=== PATIENT | male | born 1960 | race Two or more races ===

== ENCOUNTER 2023-05-13 15:32 | Inpatient (IN) | payer MEDICAID, OTHER ==
[~2023-05-13] VITALS: Ht 170.2 cm; Wt 99.0 kg
[2023-05-13 16:38] LABS: Basophils # (auto) 0 10 ^3/uL (0-0.2); Basophils % (auto) 0.4 % (0.0-2.0); Eosinophils # (auto) 0 10 ^3/uL (0-0.8); Eosinophils % (auto) 0.8 % (0.0-7.0); Hematocrit 28.9 % (41.0-53.0); Hemoglobin 8.9 g/dL (13.5-17.5); Lymphocytes # (auto) 0.9 10 ^3/uL (0.4-5.4); Lymphocytes % (auto) 15.7 % (10.0-50.0); Mean Corpuscular Hemoglobin 24.7 pg (28.0-32.0); Mean Corpuscular Hgb Conc. 30.9 g/dL (32.0-36.0); Monocytes # (auto) 0.6 10 ^3/uL (0-1.3); Monocytes % (auto) 10.6 % (0.0-12.0); Neutrophils # (auto) 4.1 10 ^3/uL (1.6-8.6); Neutrophils % (auto) 72.5 % (37.0-80.0); Nucleated Red Blood Cells % 0.1 %; Red Blood Cells 3.61 10^6/uL (4.5-5.90); Red Cell Distribution Width 19.7 % (11.8-14.3); White Blood Cell 5.6 10^3/uL (4.4-10.8)
[2023-05-13 16:52] LABS: Alanine Aminotransferase 56 U/L (7-40); Albumin 3.2 g/dL (3.2-4.8); Alkaline Phosphatase 100 U/L (46-116); Anion Gap 7 (5-15); Aspartate Aminotransferase 68 U/L (13-40); BUN/Creatinine Ratio 14.4 (10.0-20.0); Blood Urea Nitrogen 15 mg/dL (9-23); Calcium 8.5 mg/dL (8.7-10.4); Carbon Dioxide 22 mmol/L (20-30); Chloride 108 mmol/L (98-107); Glucose 105 mg/dL (74-106); Potassium 3.9 mmol/L (3.5-5.1); Sodium 137 mmol/L (136-145)
[2023-05-13 16:53] LABS: Bilirubin, Total 0.7 mg/dL (0.2-1.0); INR 1.11 (0.9-1.15); Partial Thromboplastin Time 29.9 SEC (24.5-34.5); Prothrombin Time 11.6 sec (9.3-11.8); Total Protein 7.5 g/dL (5.7-8.2)
[2023-05-13] MEDS ORDERED: ACETAMINOPHEN 325 MG TAB PO PRN (19:15)
[2023-05-13] MEDS ORDERED: CLINDAMYCIN 600MG IV 50 ML IV ONE (19:15)
[2023-05-13] MEDS ORDERED: VANCOMYCIN PER PHARMACY 0 MG IV SCH (19:15)
[2023-05-13 19:53] LABS: Triglycerides 98 mg/dL (< 150)
[2023-05-13 19:54] LABS: LDL Cholesterol 42 mg/dL (< 100)
[2023-05-13 19:55] LABS: Cholesterol 95 mg/dL (< 200); HDL Cholesterol 34 mg/dL (40-59)
[2023-05-13 20:00] VITALS: RESP 20; O2SAT 98
[2023-05-13] MEDS ORDERED: VANCOMYCIN 1GM/200ML 200 ML IV NR (20:00)
[2023-05-13] MEDS: KETOROLAC TROMETH 30 MG/ML 1ML VIAL IV ONE (20:27)
[2023-05-13] MEDS: CLINDAMYCIN 600MG IV 50 ML IV SCH (20:29)
[2023-05-13] MEDS: SODIUM CHLORIDE 0.9% 1,000 ML IV SCH (21:53)
[2023-05-13] MEDS: ASCORBIC ACID 500 MG TAB PO SCH (22:01)
[2023-05-13] MEDS: PIPERACILLIN-TAZOB 3.375GM 100 ML IV ONE (22:20)
[2023-05-14] MEDS: HYDROcodone-ACET 5/325MG TAB PO PRN (05:22)
[2023-05-14 06:34] LABS: Basophils # (auto) 0 10 ^3/uL (0-0.2); Basophils % (auto) 0.5 % (0.0-2.0); Eosinophils # (auto) 0.1 10 ^3/uL (0-0.8); Eosinophils % (auto) 2.4 % (0.0-7.0); Hematocrit 28.5 % (41.0-53.0); Hemoglobin 8.9 g/dL (13.5-17.5); Lymphocytes # (auto) 1.2 10 ^3/uL (0.4-5.4); Lymphocytes % (auto) 20.7 % (10.0-50.0); Mean Corpuscular Hemoglobin 24.7 pg (28.0-32.0); Mean Corpuscular Hgb Conc. 31.1 g/dL (32.0-36.0); Mean Corpuscular Volume 79.5 fL (80.0-100.0); Monocytes # (auto) 0.9 10 ^3/uL (0-1.3); Monocytes % (auto) 15.1 % (0.0-12.0); Neutrophils # (auto) 3.5 10 ^3/uL (1.6-8.6); Neutrophils % (auto) 61.3 % (37.0-80.0); Nucleated Red Blood Cells % 0.1 %; Red Blood Cells 3.58 10^6/uL (4.5-5.90); Red Cell Distribution Width 19.7 % (11.8-14.3); White Blood Cell 5.7 10^3/uL (4.4-10.8)
[2023-05-14 06:50] LABS: Alanine Aminotransferase 50 U/L (7-40); Albumin 3.1 g/dL (3.2-4.8); Alkaline Phosphatase 104 U/L (46-116); Anion Gap 4 (5-15); Aspartate Aminotransferase 64 U/L (13-40); BUN/Creatinine Ratio 15.2 (10.0-20.0); Bilirubin, Total 0.6 mg/dL (0.2-1.0); Blood Urea Nitrogen 16 mg/dL (9-23); Calcium 8.3 mg/dL (8.5-10.1); Carbon Dioxide 23 mmol/L (20-30); Chloride 110 mmol/L (98-107); Glucose 125 mg/dL (74-106); Potassium 3.9 mmol/L (3.5-5.1); Sodium 137 mmol/L (136-145)
[2023-05-14 08:48] VITALS: PULSE 74; RESP 17; O2SAT 96
[2023-05-14] MEDS: MULTIPLE VITAMIN TAB PO SCH (10:15)
[2023-05-14] MEDS: ZINC SULFATE 220mg CAP or TAB PO SCH (10:15)
[2023-05-14] MEDS: VANCOMYCIN 1GM/200ML 200 ML IV ONE (10:16)
[2023-05-14 20:00] VITALS: BP 130/94; PULSE 64; PULSE 74; RESP 16; TEMP 97.6; O2SAT 96
[2023-05-14] MEDS ORDERED: VANCOMYCIN 1GM/200ML 200 ML IV SCH (20:00)
[2023-05-14] MEDS ORDERED: VANCOMYCIN 1GM/200ML 200 ML IV ONE (21:15)
[2023-05-14] MEDS: VANCOMYCIN 1GM/200ML 200 ML IV SCH (21:18)
[2023-05-14 22:00] VITALS: BP 106/65; PULSE 60; RESP 16; TEMP 97.9; O2SAT 94
[2023-05-15] VITALS (7 sets, daily range): BP systolic 107–133; BP diastolic 57–75; PULSE 59–72; RESP 14–19; TEMP 97.1–99; O2SAT 93–99
[2023-05-15] MEDS: cefTRIAXone 1GM/50ML D5W 50 ML IV ONE (15:01)
[2023-05-15 16:08] LABS: Erythrocyte Sedimentation Rate 60 mm/hr (0-20)
[2023-05-16 05:09] VITALS: BP 122/64; PULSE 72; RESP 18; TEMP 97.9; O2SAT 95
[2023-05-16 08:00] VITALS: PULSE 63; RESP 17; RESP 18; O2SAT 97
[2023-05-16 08:09] LABS: Basophils # (auto) 0.1 10 ^3/uL (0-0.2); Basophils % (auto) 1.3 % (0.0-2.0); Eosinophils # (auto) 0.1 10 ^3/uL (0-0.8); Eosinophils % (auto) 3.4 % (0.0-7.0); Hematocrit 30.4 % (41.0-53.0); Hemoglobin 9.2 g/dL (13.5-17.5); Lymphocytes % (auto) 25.5 % (10.0-50.0); Mean Corpuscular Hemoglobin 24.4 pg (28.0-32.0); Mean Corpuscular Hgb Conc. 30.3 g/dL (32.0-36.0); Mean Corpuscular Volume 80.4 fL (80.0-100.0); Monocytes # (auto) 0.4 10 ^3/uL (0-1.3); Neutrophils # (auto) 2.4 10 ^3/uL (1.6-8.6); Neutrophils % (auto) 60.8 % (37.0-80.0); Nucleated Red Blood Cells % 0.2 %; Red Blood Cells 3.78 10^6/uL (4.5-5.90); Red Cell Distribution Width 19.6 % (11.8-14.3)
[2023-05-16 08:10] VITALS: BP 115/67; PULSE 63; RESP 18; TEMP 98; O2SAT 97
[2023-05-16] MEDS: cefTRIAXone 1GM/50ML D5W 50 ML IV SCH (09:21)
[2023-05-16 10:55] LABS: Chloride 106 mmol/L (98-107); Sodium 134 mmol/L (136-145)
[2023-05-16 10:59] LABS: Anion Gap 6 (5-15); Carbon Dioxide 22 mmol/L (20-30)
[2023-05-16 11:00] LABS: Calcium 8.2 mg/dL (8.5-10.1)
[2023-05-16 11:05] LABS: Glucose 130 mg/dL (74-106)
[2023-05-16 11:11] LABS: Blood Urea Nitrogen 11 mg/dL (9-23)
[2023-05-16 11:16] LABS: Potassium 4.1 mmol/L (3.5-5.1)
[2023-05-16 11:17] LABS: BUN/Creatinine Ratio 11.6 (10.0-20.0)
[2023-05-16 12:10] VITALS: BP 114/65; PULSE 63; RESP 18; TEMP 98.2; O2SAT 97
[2023-05-16 16:05] VITALS: BP 108/62; PULSE 56; RESP 20; TEMP 98; O2SAT 96
[2023-05-16] MEDS: ceFAZolin 2 GM/D5W50ml 50 ML IV ONE (16:30)
[2023-05-16 20:00] VITALS: BP 123/71; PULSE 72; PULSE 79; RESP 16; RESP 17; TEMP 97.8; O2SAT 97
[2023-05-16] MEDS: ceFAZolin 2 GM/D5W50ml 50 ML IV SCH (21:00)
[2023-05-17] VITALS (7 sets, daily range): BP systolic 107–126; BP diastolic 45–71; PULSE 56–68; RESP 17–20; TEMP 97.9–98.7; O2SAT 95–100
[2023-05-17 06:17] LABS: Basophils # (auto) 0 10 ^3/uL (0-0.2); Basophils % (auto) 1.1 % (0.0-2.0); Eosinophils # (auto) 0.2 10 ^3/uL (0-0.8); Hemoglobin 9.1 g/dL (13.5-17.5); Lymphocytes # (auto) 1.2 10 ^3/uL (0.4-5.4); Monocytes # (auto) 0.4 10 ^3/uL (0-1.3); Neutrophils # (auto) 2.7 10 ^3/uL (1.6-8.6); White Blood Cell 4.5 10^3/uL (4.4-10.8)
[2023-05-17 06:21] LABS: Eosinophils % (auto) 3.5 % (0.0-7.0); Hematocrit 28.4 % (41.0-53.0); Lymphocytes % (auto) 26.2 % (10.0-50.0); Mean Corpuscular Hemoglobin 25.1 pg (28.0-32.0); Mean Corpuscular Volume 78.3 fL (80.0-100.0); Monocytes % (auto) 8.7 % (0.0-12.0); Neutrophils % (auto) 60.5 % (37.0-80.0); Nucleated Red Blood Cells % 0.1 %; Red Blood Cells 3.63 10^6/uL (4.5-5.90); Red Cell Distribution Width 19.1 % (11.8-14.3)
[2023-05-17 06:35] LABS: INR 1.11 (0.9-1.15); Partial Thromboplastin Time 25.6 SEC (24.5-34.5); Prothrombin Time 11.6 sec (9.3-11.8)
[2023-05-17 06:48] LABS: Alanine Aminotransferase 77 U/L (7-40); Albumin 3.1 g/dL (3.2-4.8); Alkaline Phosphatase 114 U/L (46-116); Anion Gap 7 (5-15); Aspartate Aminotransferase 118 U/L (13-40); Bilirubin, Total 0.4 mg/dL (0.2-1.0); Blood Urea Nitrogen 15 mg/dL (9-23); Calcium 8.3 mg/dL (8.5-10.1); Carbon Dioxide 23 mmol/L (20-30); Chloride 105 mmol/L (98-107); Glucose 97 mg/dL (74-106); Potassium 4.4 mmol/L (3.5-5.1); Sodium 135 mmol/L (136-145)
[2023-05-18] VITALS (8 sets, daily range): BP systolic 101–133; BP diastolic 46–68; PULSE 57–90; RESP 16–18; TEMP 97.2–98.2; O2SAT 96–99
[2023-05-18] MEDS: DAKINS QUARTER STR 0.125% (NaHypochlorite) 473 ML TOPICAL SOL TOP SCH (18:46)
[2023-05-18 23:41] LABS: Urine Bacteria FEW /hpf (None Seen); Urine Blood Negative /uL (Negative); Urine Clarity Clear (Clear); Urine Color Colorless (Yellow); Urine Protein, UAD Negative (Negative); Urine Specific Gravity 1.008 (1.001-1.035); Urine Urobilinogen Normal (Negative); Urine WBC <1 /hpf (0 - 3)
[2023-05-19] VITALS (7 sets, daily range): BP systolic 105–127; BP diastolic 46–61; PULSE 61–70; RESP 12–18; TEMP 97.9–99.3; O2SAT 96–99
[2023-05-19] MEDS ORDERED: MEPERIDINE HCL (25 MG/ML) 1ML VIAL ONE ×2 (07:22→07:58)
[2023-05-19] MEDS ORDERED: fentaNYL CITRATE 100 MCG/2 ML VL ONE (07:22)
[2023-05-19] MEDS ORDERED: MIDAZOLAM HCL 2MG/2ML 2ml VIAL (1mg/ml) ONE (07:22)
[2023-05-19] MEDS: LIDOCAINE 2% JELLY 11ml (GLYDO) ONE (07:38)
[2023-05-19] MEDS: BUPIVACAINE 0.5% P/F INJ 10 ML VIAL ONE (07:41)
[2023-05-19] MEDS: LIDOCAINE 1% HCL (LOCAL ANESTH.) INJ 20ML MDV ONE (07:41)
[2023-05-19] MEDS ORDERED: DexAMETHasone SOD PHOS 10MG/1ML VIAL INJ ONE (07:58)
[2023-05-19] MEDS ORDERED: PROPOFOL 10 MG/ML 20 ML IV ONE (07:58)
[2023-05-19] MEDS ORDERED: MORPHINE SULFATE 4 MG/ML SYR/VIAL IV PRN (08:15)
[2023-05-19] MEDS ORDERED: HYDROmorphone HCL 2 MG/ML VL/or syr IV PRN (08:15)
[2023-05-19] MEDS ORDERED: ONDANSETRON HCL 4 MG/2 ML VIAL IV PRN (08:15)
[2023-05-19] MEDS ORDERED: MIDAZOLAM HCL 2MG/2ML 2ml VIAL (1mg/ml) IV PRN (08:15)
[2023-05-19] MEDS ORDERED: ePHEDrine SULFATE 50 MG/ML AMP IV PRN (08:15)
[2023-05-19] MEDS ORDERED: LABETALOL HCL 5 MG/ML 4ML SYRINGE IV PRN (08:15)
[2023-05-19] MEDS: HYDROmorphone HCL 2 MG/ML VL/or syr IV ONE ×2 (08:59→09:13)
[2023-05-19] MEDS ORDERED: PHENYLEPHRINE HCL 10 MG/ML VL IV ONE (14:49)
[2023-05-19] MEDS ORDERED: ONDANSETRON HCL 4 MG/2 ML VIAL IV ONE (14:49)
[2023-05-19] MEDS: MORPHINE SULFATE INJ 2 MG/ml SYRG IV PRN (17:30)
[2023-05-20 01:00] VITALS: BP 109/57; PULSE 63; RESP 16; TEMP 98.4; O2SAT 96
[2023-05-20 04:57] VITALS: BP 129/66; PULSE 56; RESP 14; TEMP 97.7; O2SAT 97
[2023-05-20 05:40] LABS: Basophils # (auto) 0 10 ^3/uL (0-0.2); Eosinophils # (auto) 0 10 ^3/uL (0-0.8); Hemoglobin 8.5 g/dL (13.5-17.5); Lymphocytes # (auto) 0.8 10 ^3/uL (0.4-5.4); Monocytes # (auto) 0.5 10 ^3/uL (0-1.3); Neutrophils # (auto) 5.9 10 ^3/uL (1.6-8.6); White Blood Cell 7.2 10^3/uL (4.4-10.8)
[2023-05-20 05:43] LABS: Basophils % (auto) 0.3 % (0.0-2.0); Eosinophils % (auto) 0.1 % (0.0-7.0); Hematocrit 27.6 % (41.0-53.0); Lymphocytes % (auto) 11.3 % (10.0-50.0); Mean Corpuscular Hemoglobin 24.7 pg (28.0-32.0); Mean Corpuscular Hgb Conc. 30.8 g/dL (32.0-36.0); Monocytes % (auto) 6.5 % (0.0-12.0); Neutrophils % (auto) 81.8 % (37.0-80.0); Nucleated Red Blood Cells % 0.1 %; Red Blood Cells 3.45 10^6/uL (4.5-5.90); Red Cell Distribution Width 19.3 % (11.8-14.3)
[2023-05-20 05:52] LABS: Anion Gap 8 (5-15); Carbon Dioxide 21 mmol/L (20-30); Chloride 107 mmol/L (98-107); Potassium 4.5 mmol/L (3.5-5.1); Sodium 136 mmol/L (136-145)
[2023-05-20 05:54] LABS: Calcium 8.1 mg/dL (8.7-10.4)
[2023-05-20 05:58] LABS: Glucose 136 mg/dL (74-106)
[2023-05-20 05:59] LABS: BUN/Creatinine Ratio 19.8 (10.0-20.0); Blood Urea Nitrogen 20 mg/dL (9-23)
[2023-05-20 09:09] VITALS: BP 126/60; PULSE 63; RESP 20; TEMP 97.9; O2SAT 99
[2023-05-20 12:48] VITALS: BP 118/53; PULSE 55; RESP 18; TEMP 97.7; O2SAT 100
[2023-05-20 16:35] VITALS: BP 121/63; PULSE 68; RESP 20; TEMP 98.1; O2SAT 99
[2023-05-20 21:00] VITALS: BP 118/60; PULSE 61; RESP 18; TEMP 97.7; O2SAT 98
[2023-05-21 01:00] VITALS: BP 121/85; PULSE 57; RESP 18; TEMP 97.7; O2SAT 98
[2023-05-21 05:00] VITALS: BP 115/70; PULSE 63; RESP 18; TEMP 97.7; O2SAT 97
[2023-05-21 08:00] VITALS: BP 120/55; PULSE 58; PULSE 60; RESP 18; RESP 21; TEMP 98.1; O2SAT 99
[2023-05-21 12:00] VITALS: BP 110/56; PULSE 61; RESP 20; TEMP 98.2; O2SAT 100
[2023-05-21] MEDS ORDERED: CEPH500C PO (12:03)
[2023-05-21 13:57] VITALS: BP 110/56; PULSE 76; RESP 20; TEMP 98.3; O2SAT 98
== END 2023-05-21 14:50 | disposition home or self-care (01) | DRG 320 ==
LOC: ER 15:32 → OVERFLOW 19:16 → WEST WING 05-14 09:37 → TELE-WESTW 05-17 18:09 → WEST WING 05-18 00:03
PROVIDERS: ADMIT Nurse Practitioner Family; ATTEND Nurse Practitioner Acute Care
PROC: 0QPJ04Z Removal of Internal Fixation Device from Right Fibula, Open Approach (ICD-10-PCS; principal; 2023-05-19 07:28)
DX: T84.624A Infection and inflammatory reaction due to internal fixation device of right fibula, initial encounter (principal); D69.6 Thrombocytopenia, unspecified; L97.316 Non-pressure chronic ulcer of right ankle with bone involvement without evidence of necrosis; L03.115 Cellulitis of right lower limb; T84.84XA Pain due to internal orthopedic prosthetic devices, implants and grafts, initial encounter; G89.18 Other acute postprocedural pain; D64.9 Anemia, unspecified; E66.01 Morbid (severe) obesity due to excess calories; R74.01 Elevation of levels of liver transaminase levels; M85.80 Other specified disorders of bone density and structure, unspecified site; R60.9 Edema, unspecified; Y83.1 Surgical operation with implant of artificial internal device as the cause of abnormal reaction of the patient, or of later complication, without mention of misadventure at the time of the procedure; X58.XXXA Exposure to other specified factors, initial encounter; I34.0 Nonrheumatic mitral (valve) insufficiency; Z68.34 Body mass index [BMI] 34.0-34.9, adult; Y93.89 Activity, other specified; Y92.89 Other specified places as the place of occurrence of the external cause; Y99.8 Other external cause status
CPT/HCPCS: 36415; 71045; 73600; 73610; 73630; 73700; 76000; 80048; 80053; 80061; 80202; 81001; 83036; 84443; 85025; 85610; 85652; 85730; 86141; 87040; 87070; 87075; 87077; 87186; 87205; 93005; 93306; 93971; 96365; 96375; G0378; J1100; J1885; J2001; J2250; J2405; J2543; J2704; J3490